=== PATIENT | male | born 2000 | race Caucasian/White ===

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

== ENCOUNTER 2022-11-21 10:08 | Emergency (ER) | payer OTHER ==
--- OUTSIDE RECORDS SUMMARY | 2022-11-21 10:14 | XMS REPORT | Continuity of Care Document ---
:2000 Author Organization [facility] t Address [address] [facility] [address] [place] [id number] Care Team Providers Name Role Phone Leonel Salmeron Attending Clinician Unavailable Payers Payer Name Policy Type Policy Number Effective Date Expiration Date [place] [id number] 2022 00:00:00 [place]AD[place] Problems This patient has no known problems. Allergies, Adverse Reactions, Alerts This patient has no known allergies or adverse reactions. Medications This patient has no known medications. Procedures This patient has no known procedures. Encounters Start End Encounter Admission Attending Care Care Encounter Source Date/Time Date/Time Type Type Clinicians Facility Department ID 2022-03-31 Outpatient [facility] [id number] [facility] 12:34:55 [facility] 2022-08-12 2022-08-12 Outpatient VFP VFP [id number] [facility] 00:00:00 00:00:00 [id number] [facility] 2022-08-11 2022-08-11 Outpatient VFP VFP [id number] [facility] 00:00:00 00:00:00 [id number] Family Practic e 2021-11-04 2021-11-04 Outpatient VIKTORIYA Salmeron Sebas [id number] [facility] 14:43:00 14:43:00 [facility] 2021-10-27 2021-10-27 Outpatient VIKTORIYA Salmeron Sebas [id number] [facility] 00:00:00 00:00:00 [facility] 2021-07-07 2021-07-07 Outpatient VIKTORIYA Salmeron Sebas [id number] [facility] 00:00:00 00:00:00 [facility] Results This patient has no known results.
--- NOTE | 2022-11-21 10:31 | EDPHYS ---
Physician Documentation [facility] Name: Anderson Almazan Age: 22 yrs Sex: Male : 2000 Arrival Date: 11/21/2022 Time: 10:08 Bed Waiting Private MD: ED Physician Richard Britton HPI: 11/21 10:28 This 22 yrs old Male presents to ER via Unassigned with complaints of Eye Problem. kb 10:28 The patient is experiencing redness, tearing, The patient sustained None. to both eyes, kb caused by an unknown mechanism. Onset: The symptoms/episode began/occurred 4 day(s) ago. Duration: the symptoms are continuous. Aggravated by nothing. Alleviated by nothing. Associated signs and symptoms: Pertinent positives: None. Pertinent negatives: None. Patient does not utilize any form of vision correction. Severity of symptoms: At their worst the symptoms were moderate in the emergency department the symptoms are unchanged. The patient has not experienced similar symptoms in the past. The patient has not recently seen a physician. Pt reports itching, redness and watery eyes for 3-4 days that has been getting worse. No relief with otc eyedrops. Denies pain or visual distrurbances. Historical: - Allergies: 10:35 No Known Allergies; ph - PMHx: 10:35 adhd; Anxiety; Bipolar disorder; Depression; ph - Immunization history:: Adult Immunizations unknown. - Social history:: Smoking status: Reported history of juuling and/or vaping. ROS: 10:28 Constitutional: Negative for fever, chills, and weight loss. kb 10:28 Eyes: Positive for itching, redness. 10:28 All other systems are negative. kb Exam: 10:28 Constitutional: This is a well developed, well nourished patient who is awake, alert, kb and in no acute distress. Head/Face: Normocephalic, atraumatic. ENT: Moist Mucous membranes Cardiovascular: Regular rate and rhythm with a normal S1 and S2. No gallops, murmurs, or rubs. No pulse deficits. Respiratory: Respirations even and unlabored. No increased work of breathing. Talking in full sentences Skin: Warm, dry with normal turgor. Normal color. MS/ Extremity: Pulses equal, no cyanosis. Neurovascular intact. Full, normal range of motion. Neuro: Awake and alert, GCS 15, oriented to person, place, time, and situation. Moves all extremities. Normal gait. 10:28 Eyes: Periorbital structures: appear normal, Pupils: equal, round, and reactive to light and accomodation, Extraocular movements: intact throughout, Conjunctiva: injected, bilaterally. Vital Signs: 10:37 BP 119 / 78; Pulse 87; Resp 18; Temp 98.7; Pulse Ox 98% on R/A; ph MDM: 10:17 Patient medically screened. kb 10:30 Differential diagnosis: Corneal abrasion of Corneal ulcer of Data reviewed: vital kb signs, nurses notes. Counseling: I had a detailed discussion with the patient and/or guardian regarding: the historical points, exam findings, and any diagnostic results supporting the discharge/admit diagnosis, the need for outpatient follow up, an opthalmologist, to return to the emergency department if symptoms worsen or persist or if there are any questions or concerns that arise at home. Administered Medications: No medications were administered Disposition Summary: 11/21/22 10:31 Discharge Ordered Location: Home kb Condition: Stable kb Diagnosis - Unspecified conjunctivitis kb Followup: kb - With: Emergency Department - When: As needed - Reason: Worsening of condition Followup: kb - With: Private Physician - When: 2 - 3 days - Reason: Recheck today's complaints, Continuance of care, Re-evaluation by your physician Discharge Instructions: - Discharge Summary Sheet kb - Bacterial Conjunctivitis, Adult, [id number] kb Forms: - Medication Reconciliation Form kb - Thank You Letter kb - Antibiotic Education kb - Prescription Opioid Use kb - Work release form ph Prescriptions: - Erythromycin 5 mg/gram (0.5 %) Ophthalmic Ointment - apply 1 centimeter by OPHTHALMIC route 2-3 times daily for 7 days; 1 unit; kb Refills: 0, Product Selection Permitted Signatures: Marley Ness FNP-C FNP-Negra Camacho RN RN ph Corrections: (The following items were deleted from the chart) 10:31 10:28 Pt reports itching, redness and watery eyes for 3-4 days that has been getting kb worse. No relief with otc eyedrops. kb
--- NOTE | 2022-11-21 10:38 | ER ---
Nurse's Notes [facility] Name: Anderson Almazan Age: 22 yrs Sex: Male : 2000 Arrival Date: 11/21/2022 Time: 10:08 Bed Waiting Private MD: Diagnosis: Unspecified conjunctivitis Presentation: 11/21 10:35 Chief complaint: Patient states: Redness and itching to both eyes x 3-4 days. ph Coronavirus screen: Vaccine status: Patient reports being unvaccinated. Ebola Screen: No symptoms or risks identified at this time. Initial Sepsis Screen: Does the patient meet any 2 criteria? No. Patient's initial sepsis screen is negative. Does the patient have a suspected source of infection? No. Patient's initial sepsis screen is negative. Risk Assessment: Do you want to hurt yourself or someone else? Patient reports no desire to harm self or others. Onset of symptoms was November 21, 2022. 10:35 Method Of Arrival: Ambulatory ph 10:35 Acuity: ROBERTO 5 ph Triage Assessment: 10:35 General: Appears in no apparent distress. Behavior is calm, cooperative. Pain: ph Complains of pain in right eye and left eye. EENT: Sclera/Cornea are reddened in right eye and left eye. Neuro: Level of Consciousness is awake, alert, obeys commands, Oriented to person, place, time, situation. Historical: - Allergies: 10:35 No Known Allergies; ph - PMHx: 10:35 adhd; Anxiety; Bipolar disorder; Depression; ph - Immunization history:: Adult Immunizations unknown. - Social history:: Smoking status: Reported history of juuling and/or vaping. Screenin:35 [facility] ED Fall Risk Assessment (Adult) History of falling in the last 3 months, ph including since admission No falls in past 3 months (0 pts). Abuse screen: Denies threats or abuse. Denies injuries from another. Nutritional screening: No deficits noted. Tuberculosis screening: No symptoms or risk factors identified. Vital Signs: 10:37 BP 119 / 78; Pulse 87; Resp 18; Temp 98.7; Pulse Ox 98% on R/A; ph ED Course: 10:10 Patient arrived in ED. am2 10:17 Marley Ness FNP-C is PHCP. kb 10:17 Richard Britton MD is Attending Physician. kb 10:34 Negra Andino, RN is Primary Nurse. ph 10:35 Patient has correct armband on for positive identification. ph 10:35 Arm band placed on. ph 10:37 No provider procedures requiring assistance completed. Patient did not have IV access ph during this emergency room visit. 14:23 Triage completed. ph Administered Medications: No medications were administered Medication: 10:35 VIS not applicable for this client. ph Outcome: 10:31 Discharge ordered by MD. kb 10:37 Patient left the ED. ph 10:37 Discharged to home ambulatory. ph 10:37 Condition: good 10:37 Discharge instructions given to patient, Instructed on discharge instructions, follow up and referral plans. medication usage, Demonstrated understanding of instructions, follow-up care, medications, Prescriptions given X 1. Signatures: Marley Ness, INDUSTRIAL TRACTOR DRIVER-C INDUSTRIAL TRACTOR DRIVER-Ckb Negra Andino, RN RN Radha Rosario am2
[2022-11-21 10:50] VITALS: BP 119/78; TEMP 98.7; O2SAT 98
== END 2022-11-21 10:37 | disposition home or self-care (01) ==
LOC: ER 10:08
DX: H10.9 Unspecified conjunctivitis (principal)

== ENCOUNTER 2022-12-03 17:01 | Emergency (ER) | payer OTHER ==
--- OUTSIDE RECORDS SUMMARY | 2022-12-03 17:05 | XMS REPORT | Continuity of Care Document ---
:2000 Author Organization [facility] t Address [address] [facility] [address] [place] [id number] Care Team Providers Name Role Phone Leonel Salmeron Attending Clinician Unavailable Payers Payer Name Policy Type Policy Number Effective Date Expiration Date S [place] [id number] 2022 00:00:00 [place]AD[place] Problems This patient has no known problems. Allergies, Adverse Reactions, Alerts This patient has no known allergies or adverse reactions. Medications This patient has no known medications. Procedures This patient has no known procedures. Encounters Start End Encounter Admission Attending Care Care Encounter Source Date/Time Date/Time Type Type Clinicians Facility Department ID 2022-03-31 Outpatient [facility] [id number] [facility] 12:34:55 [facility] 2022-08-12 2022-08-12 Outpatient VFP VFP [id number] -[id number] [facility] 00:00:00 00:00:00 [id number] [facility] 2022-08-11 2022-08-11 Outpatient VFP VFP [id number] -20 [facility] 00:00:00 00:00:00 [id number] Family Practic e 2021-11-04 2021-11-04 Outpatient VIKTORIYA Salmeron Sebas [id number] [facility] 14:43:00 14:43:00 [facility] 2021-10-27 2021-10-27 Outpatient VIKTORIYA Salmeron Sebas [id number] [facility] 00:00:00 00:00:00 [facility] 2021-07-07 2021-07-07 Outpatient VIKTORIYA Salmeron Sebas [id number] [facility] 00:00:00 00:00:00 [facility] Results This patient has no known results.
[2022-12-03 19:59] LABS: Absolute Lymphocytes (CBC) 2.6 K/uL (0.7-4.9); Hematocrit 48.5 % (39.6-49.0); Lymphocytes % 36.9 % (15.3-44.8); MCV 89.6 fL (80-100); MPV 8.2 fL (7.6-11.3); RBC Red Blood Cell Count 5.41 M/uL (4.33-5.43)
[2022-12-03 20:18] LABS: Albumin 5.1 g/dL (3.4-5.0); Bilirubin Total 1.2 mg/dL (0.2-1.0); Potassium 3.4 mEq/L (3.5-5.1); Protein, Total 8.7 g/dL (6.4-8.2)
[2022-12-03] MEDS ORDERED: Ringers Lactate 1,000 ML IV ONE (21:20)
--- NOTE | 2022-12-03 22:12 | RAD REPORT ---
EXAM DESCRIPTION: CTAbdomen Pelvis W Contrast - 12/03/2022 9:53 pm CLINICAL HISTORY: abdominal pain COMPARISON: No comparisons TECHNIQUE: CT of the abdomen and pelvis was performed. All CT scans are performed using dose optimization technique as appropriate and may include automated exposure control or mA/KV adjustment according to patient size. FINDINGS: Lower chest: No acute abnormality. Liver: No acute abnormality or suspicious lesions. Biliary: No biliary ductal dilatation. Stomach: No significant focal abnormality. Duodenum: No significant focal abnormality. Pancreas: No significant abnormality. Spleen: No significant abnormality. Adrenal: No suspicious lesions. Kidney/ureter: No hydronephrosis. No renal calculi. Retroperitoneum: No retroperitoneal adenopathy. Vascular: No aneurysm. Bowel: No significant focal abnormality. Normal appendix. Peritoneum: No ascites or free air. Bladder: Grossly unremarkable. Reproductive: No adnexal masses. Bones: No acute fracture. Other: n/a IMPRESSION: No acute intra-abdominal or pelvic finding. Normal appendix .
[2022-12-03 22:23] LABS: Specific Gravity > 1.030 (1.005-1.030); Urine Bacteria None Seen /HPF (<20); Urine Bilirubin NEGATIVE (Negative); Urine Blood Negative (Negative); Urine Clarity Clear (Clear); Urine Color Yellow (Yellow); Urine Glucose NEGATIVE (Negative); Urine Mucus 4+ /HPF (None Seen); Urine Protein 1+ (Negative); Urine RBC <5 /HPF (None Seen); Urine Urobilinogen 2+ (Normal)
[2022-12-03 22:26] LABS: Barbiturates NEGATIVE (NEGATIVE); Benzodiazepines NEGATIVE (NEGATIVE); Cocaine POSITIVE (NEGATIVE); METHAMPHETAM POSITIVE (NEGATIVE); Methadone NEGATIVE (NEGATIVE); Opiates NEGATIVE (NEGATIVE); Phencyclidine NEGATIVE (NEGATIVE); THC Cannibis NEGATIVE (NEGATIVE)
--- NOTE | 2022-12-03 22:42 | EDPHYS ---
Physician Documentation [facility] Name: Anderson Almazan Age: 22 yrs Sex: Male : 2000 Arrival Date: 12/03/2022 Time: 17:01 Bed DIS1 Private MD: ED Physician Georgi Carter HPI: 12/03 17:27 This 22 yrs old Male presents to ER via Ambulatory with complaints of Vomiting, jmm Decreased Appetite. 17:27 The patient presents to the emergency department with nausea, abdominal pain. Onset: jmm The symptoms/episode began/occurred gradually, 4 day(s) ago. Possible causes: unknown. The symptoms are aggravated by nothing. The symptoms are alleviated by nothing. Historical: - Allergies: 17:24 No Known Allergies; ll1 - PMHx: 17:24 adhd; Anxiety; Bipolar disorder; Depression; ll1 - PSHx: 17:24 None; ll1 - Immunization history:: Adult Immunizations up to date. - Social history:: Smoking status: Patient reports the use of cigarette tobacco products, denies chronic smoking, but will smoke occasionally, Smoking status: Reported history of juuling and/or vaping. ROS: 17:27 Cardiovascular: Negative for chest pain, palpitations, and edema, Respiratory: Negative jmm for shortness of breath, cough, wheezing, and pleuritic chest pain. 17:27 Constitutional: Positive for body aches, fatigue. 17:27 Abdomen/GI: Positive for abdominal pain, nausea and vomiting. 17:27 All other systems are negative. Exam: 17:27 Constitutional: This is a well developed, well nourished patient who is awake, alert, jmm and in no acute distress. Head/Face: atraumatic. Eyes: EOMI, no conjunctival erythema appreciated ENT: Moist Mucus Membranes Neck: Trachea midline, Supple Chest/axilla: Normal chest wall appearance and motion. Cardiovascular: Regular rate and rhythm. No edema appreciated Respiratory: Normal respirations, no respiratory distress appreciated 17:27 Back: Normal ROM Skin: General appearance color normal MS/ Extremity: Moves all extremities, no obvious deformities appreciated, no edema noted to the lower extremities Neuro: Awake and alert Psych: Behavior is normal, Mood is normal, Patient is cooperative and pleasant 17:27 Abdomen/GI: Inspection: abdomen appears normal, Bowel sounds: normal, Palpation: soft, mild abdominal tenderness, in the right upper quadrant and left upper quadrant. Vital Signs: 17:22 BP 132 / 88; Pulse 100; Resp 18; Temp 98.3; Pulse Ox 100% ; Weight 77.11 kg; Height 6 ll1 ft. 2 in. ; 17:22 Body Mass Index 21.83 (77.11 kg, 187.96 cm) ll1 MDM: 17:27 Patient medically screened. [facility] 22:31 Differential diagnosis: Nonspecific abd pain, gastritis, cholecystitis, pancreatitis, m appendicitis, diverticulitis, viral gastroenteritis, gastroenteritis. Data reviewed: vital signs, nurses notes, lab test result(s), radiologic studies, CT scan. 22:31 I considered the following discharge prescriptions or medication management in the [facility] emergency department Medications were administered in the Emergency Department. See MAR. Counseling: I had a detailed discussion with the patient and/or guardian regarding: the historical points, exam findings, and any diagnostic results supporting the discharge/admit diagnosis, lab results, radiology results, the need for outpatient follow up, to return to the emergency department if symptoms worsen or persist or if there are any questions or concerns that arise at home. 12/03 17:29 Order name: CBC with Diff; Complete Time: 20:10 [facility] 12/03 17:29 Order name: CMP; Complete Time: 20:22 [facility] 12/03 17:29 Order name: Lipase; Complete Time: 20:22 [facility] 12/03 17:29 Order name: UDS; Complete Time: 22:31 [facility] 12/03 17:30 Order name: Urinalysis w/ reflexes; Complete Time: 22:31 [facility] 12/03 21:07 Order name: CT Abd/Pelvis - IV Contrast Only; Complete Time: 22:17 [facility] 12/03 17:29 Order name: IV Saline Lock; Complete Time: 20:01 [facility] 12/03 17:29 Order name: Labs collected and sent; Complete Time: 20:01 [facility] Administered Medications: 21:15 Drug: Lactated Ringers Solution IV 1000 ml Route: IV; Rate: 1000 bolus; Infused Over: mw [id number] hrs; Site: left forearm; Disposition Summary: 12/03/22 22:41 Discharge Ordered Location: Home [facility] Condition: Stable [facility] Diagnosis - Nausea [facility] Followup: [facility] - With: Private Physician - When: 2 - 3 days - Reason: Recheck today's complaints, Continuance of care, Re-evaluation by your physician Discharge Instructions: - Discharge Summary Sheet [facility] - Nausea and Vomiting, Adult [facility] Forms: - Medication Reconciliation Form [facility] - Thank You Letter [facility] - Antibiotic Education [facility] - Prescription Opioid Use [facility] Prescriptions: - Carafate 1 gram Oral Tablet - take 1 tablet by ORAL route 4 times per day take on an empty stomach, beginning jmm on waking and last dose at bedtime; 100 tablet; Refills: 0, Product Selection Permitted - Pepcid 20 mg Oral Tablet - take 1 tablet by ORAL route every 12 hours for 10 days; 20 tablet; Refills: 0, [facility] Product Selection Permitted - promethazine 25 mg Oral Tablet - take 1 tablet by ORAL route every 6 hours As needed; 30 tablet; Refills: 0, [facility] Product Selection Permitted Signatures: Dispatcher [employer] Ct Bailey RN RN Stu Billingsley PA PA jmm Lewis, Lynsay RN RN ll1
--- NOTE | 2022-12-03 22:42 | ER ---
Nurse's Notes [facility] Name: Anderson Almazan Age: 22 yrs Sex: Male : 2000 Arrival Date: 12/03/2022 Time: 17:01 Bed DIS1 Private MD: Diagnosis: Nausea Presentation: 12/03 17:22 Chief complaint: Patient states: N/V, weight loss, decreased appetite, pain to abdomen ll1 and kidneys, oliguria for 3-4 days. Coronavirus screen: Client denies travel out of the [place] in the last 14 days. At this time, the client does not indicate any symptoms associated with coronavirus-19. Ebola Screen: Patient denies travel to an Ebola-affected area in the 21 days before illness onset. Initial Sepsis Screen: Does the patient meet any 2 criteria? No. Patient's initial sepsis screen is negative. Does the patient have a suspected source of infection? Yes: Acute abdominal pain. Risk Assessment: Do you want to hurt yourself or someone else? Patient reports no desire to harm self or others. Onset of symptoms was November 30, 2022. 17:22 Method Of Arrival: Ambulatory ll1 17:22 Acuity: ROBERTO 3 ll1 Triage Assessment: 17:25 General: Appears uncomfortable, Behavior is cooperative, appropriate for age, anxious. ll1 Pain: Complains of pain in abdomen Quality of pain is described as crampy. GI: Reports lower abdominal pain, upper abdominal pain, cramping, nausea, vomiting. Historical: - Allergies: 17:24 No Known Allergies; ll1 - PMHx: 17:24 adhd; Anxiety; Bipolar disorder; Depression; ll1 - PSHx: 17:24 None; ll1 - Immunization history:: Adult Immunizations up to date. - Social history:: Smoking status: Patient reports the use of cigarette tobacco products, denies chronic smoking, but will smoke occasionally, Smoking status: Reported history of juuling and/or vaping. Vital Signs: 17:22 BP 132 / 88; Pulse 100; Resp 18; Temp 98.3; Pulse Ox 100% ; Weight 77.11 kg; Height 6 ll1 ft. 2 in. ; 17:22 Body Mass Index 21.83 (77.11 kg, 187.96 cm) 1 ED Course: 17:02 Patient arrived in ED. rg4 17:07 Stu Eastman PA is PHCP. [facility] 17:07 Georgi Carter MD is Attending Physician. [facility] 17:24 Triage completed. ll1 17:25 Arm band placed on. ll1 20:01 CBC with Diff Sent. ha1 20:01 CMP Sent. ha1 20:01 Lipase Sent. ha1 20:23 Inserted saline lock: 20 gauge in right forearm, using aseptic technique. Blood oe collected. 21:54 CT Abd/Pelvis - IV Contrast Only In Process Unspecified. EDMS 22:12 UDS Sent. mw 22:12 Urinalysis w/ reflexes Sent. mw Administered Medications: 21:15 Drug: Lactated Ringers Solution IV 1000 ml Route: IV; Rate: 1000 bolus; Infused Over: mw [id number] hrs; Site: left forearm; Outcome: 22:41 Discharge ordered by . [facility] 22:55 Patient left the ED. mw Signatures: Dispatcher [employer] EDMS Ct Mor[place] RN RN Stu Eastman PA PA jmm Garcia, Rubi rg4 Lloyd Huitron oe Camden Estrella, RN RN [facility] Daria Carrero, RN RN [facility]
[2022-12-04 00:48] VITALS: BP 132/88; TEMP 98.3; O2SAT 100
== END 2022-12-03 22:55 | disposition home or self-care (01) ==
LOC: ER 17:01
DX: R11.0 Nausea (principal); R10.11 Right upper quadrant pain; R53.83 Other fatigue; F17.210 Nicotine dependence, cigarettes, uncomplicated
CPT/HCPCS: 85025; 81001; 36415; 83690; 80053; 80307; 74177; 99284; Q9967; J7120